=== PATIENT | male | born 1960 | race Caucasian/White ===

== ENCOUNTER 2017-07-26 09:09 | Day surgery (SDC) | payer BC, OTHER ==
[2017-07-25 11:38] VITALS: BMI 28.0
[2017-07-26] MEDS ORDERED: PROPOFOL 20 ML ONE ×3 (10:06)
[2017-07-26 10:45] VITALS: TEMP 97.7
[2017-07-26 11:25] VITALS: BP 133/73; PULSE 56
--- NOTE | 2017-07-29 13:10 | PATH ---
Surgical Pathology Report Patient Name: SARAH ORTHMAN [facility]. Rec. #: [id number] /Age/Gender: 1960 (Age: 57) / M Account: [id number] Location: [facility]-ENDOSCOPY Taken: 07/26/2017 Received: 07/26/2017 Reported: 07/29/2017 Physicians: Paolo Macias M.D. Specimen(s) Received A: BX GASTRIC BIOPSY B: BX DISTAL ESOPHAGUS C: BX CARDIA Clinical History Esophagitis, hiatal hernia Erosive gastritis cardia, erosive duodenitis, large hiatal hernia, nodular mucosa cardia Final Diagnosis A. STOMACH, BIOPSY: GASTRIC OXYNTIC MUCOSA WITH MILD CHRONIC GASTRITIS. IMMUNOSTAIN FOR H. PYLORI IS NEGATIVE FOR ORGANISMS. B. ESOPHAGUS, DISTAL, BIOPSY: SQUAMOUS EPITHELIUM WITH CHRONIC INFLAMMATION AND REFLUX CHANGES. NO COLUMNAR EPITHELIUM PRESENT (NO INTESTINAL METAPLASIA/HARMON'S ESOPHAGUS IDENTIFIED) IN THE EXAMINED MATERIAL. C. CARDIA, BIOPSY: SQUAMOCOLUMNAR JUNCTIONAL MUCOSA WITH CHRONIC INFLAMMATION AND FOCAL INTESTINAL METAPLASIA (SEE COMMENT). NEGATIVE FOR DYSPLASIA. Comment: The findings may represent Harmon's esophagus in proper endoscopic settings. Endoscopic correlations and followup are suggested. Electronically Signed Scott Last M.D. Gross Description A. Received in formalin, labeled "gastric biopsy" are 2 conrad, irregular portions of soft tissue averaging 0.5 cm in greatest dimension. The specimens are submitted in toto in one cassette. B. Received in formalin, labeled "biopsy distal esophagus" is a conrad, irregular portion of soft tissue measuring 0.4 cm in greatest dimension. The specimen is submitted in toto in one cassette. C. Received in formalin, labeled "biopsy cardia" is a conrad, irregular portion of soft tissue measuring 0.3 cm in greatest dimension. The specimen is submitted in toto in one cassette. 07/26/201707/26/2017
== END 2017-07-26 11:33 | disposition home or self-care (01) ==
LOC: JASU-ENDO 09:09
PROVIDERS: ATTEND Internal Medicine Gastroenterology
PROC: 0DB68ZX Excision of Stomach, Via Natural or Artificial Opening Endoscopic, Diagnostic (ICD-10-PCS; 2017-07-26)
PROC: 0DB58ZX Excision of Esophagus, Via Natural or Artificial Opening Endoscopic, Diagnostic (ICD-10-PCS; principal; 2017-07-26 10:00)
DX: K26.9 Duodenal ulcer, unspecified as acute or chronic, without hemorrhage or perforation (principal); K44.9 Diaphragmatic hernia without obstruction or gangrene; K22.10 Ulcer of esophagus without bleeding; K25.9 Gastric ulcer, unspecified as acute or chronic, without hemorrhage or perforation
CPT/HCPCS: 88305-TC; 88342-TC

== ENCOUNTER 2020-01-05 01:01 | Emergency (ER) | payer BC, OTHER ==
[2020-01-05 01:07] VITALS: BP 157/75; PULSE 70; TEMP 97.5; BMI 25.3
[2020-01-05] MEDS ORDERED: FAMOTIDINE 20 MG/50 ML IVPB 20 MG/50 ML MG IVPB ONE ×2 (02:04→02:25)
[2020-01-05] MEDS ORDERED: ACETAMINOPHEN 1000 MG/100 ML VIAL (NON FORMULARY) IVPB ONE (02:04)
[2020-01-05] MEDS ORDERED: MAG HYDROX/AL HYDROX/SIMETH 30 ML UNIT-DOSE CUP PO ONE (02:04)
[2020-01-05] MEDS ORDERED: SODIUM CHLORIDE 0.9% 500 ML INFUS.BAG IV ONE (02:04)
[2020-01-05] MEDS ORDERED: ACETAMINOPHEN INJECTION 100 ML IVPB ONE (02:24)
[2020-01-05] MEDS ORDERED: MAG HYDROX/AL HYDROX/SIMETH 30 ML UNIT-DOSE CUP ONE (02:24)
[2020-01-05 02:49] LABS: BASO % 0.6 % (0-2.0); EOS % 3.7 % (0-4.5); HEMATOCRIT 40.4 % (35.4-49); HEMOGLOBIN 13.8 GM/dL (11.7-16.9); LYMPH % 12.4 % (8-40); MCH 30.8 pg (25.7-33.7); MCHC 34.1 g/dl (32.0-35.9); MEAN CELL VOLUME 90.5 fl (80-96); MEAN PLT VOLUME 7.9 fl (7.5-11.1); MONO % 5.9 % (3.8-10.2); NEUT % 77.4 % (42.8-82.8); PLATELET COUNT 230 K/MM3 (134-434); RBC 4.46 M/mm3 (4.00-5.60); RDW 13.4 % (11.9-15.9); WHITE BLOOD COUNT 8.6 K/mm3 (4.0-10.0)
--- NOTE | 2020-01-05 03:06 | PDOC ---
History of Present Illness - General Chief Complaint: Pain Stated Complaint: ABDOMINAL PAIN Time Seen by Provider: 01/05/20 01:50 History Source: Patient Exam Limitations: No Limitations - History of Present Illness Initial Comments: 59M PMH GERD c/o nonradiating constant epigastric pain since 8pm today after he ate some fruit and nuts. Pain was worsening which prompted patient to come in. Denies n/v/d, f/c, cp/sob. Pt had the exact same presentation 7 days ago on 12/29 and was evaluated at [facility] with a negative cardiac workup; pain had resolved until today. Sees Dr. Boles for GI, has endoscopy scheduled in May. Endorses occasional etoh. PMH: 2 right inguinal hernia repairs in the past Past History - Past Medical History Allergies/Adverse Reactions: Allergies Allergy/AdvReac Type Severity Reaction Status Date / Time No Known Allergies Allergy Verified 01/05/20 01:07 Home Medications: Ambulatory Orders Multivitamin [One Daily] 1 each PO DAILY 07/24/17 Pantoprazole Sodium [Protonix -] 1 tab PO DAILY #30 tablet.ec 07/26/17 Anemia: No Asthma: No Cancer: No Cardiac Disorders: No CVA: No COPD: No CHF: No Dementia: No Diabetes: No GI Disorders: Yes (REFLUXESOPHAGITIS,GASTRITIS;H/H,STOMACH ULCER) Disorders: No HTN: No Hypercholesterolemia: Yes Liver Disease: No Seizures: No Thyroid Disease: No - Surgical History Abdominal Surgery: Yes (REPAIR RIGHT INGUINAL HERNIA) Appendectomy: No Cholecystectomy: No Orthopedic Surgery: Yes (RT ANKLE FRACTURE) - Psycho Social/Smoking Cessation Hx Smoking History: Never smoked Have you smoked in the past 12 months: No Hx Alcohol Use: Yes (OCCASSIONAL) Drug/Substance Use Hx: No Substance Use Type: Alcohol Hx Substance Use Treatment: No Review of Systems - Review of Systems Able to Perform ROS?: Yes Comments:: CONSTITUTIONAL: Denies F / C RESP: Denies SOB CARD: Denies chest pain, palpitations GI: endorses epigastric pain. Denies N / V / D, bloody stool, inability to tolerate PO : Denies dysuria SKIN: Denies rashes NEURO: Denies numbness, tingling, weakness MSK: Denies back pain *Physical Exam - Vital Signs Last Vital Signs Temp Pulse Resp BP Pulse Ox 97.5 F L 70 18 157/75 95 01/05/20 01:04 01/05/20 01:04 01/05/20 01:04 01/05/20 01:04 01/05/20 01:04 - Physical Exam 01/05/20 06:28 GEN: Well appearing, NAD, comfortable. AAOx3. HEENT: NC/AT. No facial asymmetry. Normal voice. Supple neck w/ FROM. CV: S1/S2, RRR, no m/r/g LUNG: CTAB, no wheezes, crackles, rales, rhonchi. GI: Soft, ndnt, +BS, no guarding, no rebound. No masses. MSK: No obvious deformities of all extremities. SKIN: Warm, dry, no rashes appreciated. PSYCH: Normal mood and affect. NEURO: Moving all extremities well. ambulates w/ normal gait. ED Treatment Course - LABORATORY CBC & Chemistry Diagram: 01/05/20 02:30 01/05/20 02:30 - ADDITIONAL ORDERS Additional order review: Laboratory Results 01/05/20 02:30 Lipase Cancelled 01/05/20 02:30 RBC 4.46 MCV 90.5 MCHC 34.1 RDW 13.4 MPV 7.9 Neutrophils % 77.4 D Lymphocytes % 12.4 D Monocytes % 5.9 Eosinophils % 3.7 Basophils % 0.6 - RADIOLOGY Radiology Studies Ordered: Category Date Time Status CHEST PA & LAT [RAD] Stat Radiology 01/05/20 02:04 Ordered - Medications Given in the ED: ED Medications Discontinued Medications Generic Name Dose Route Start Last Admin Trade Name Ender PRN Reason Stop Dose Admin Acetaminophen 1,000 mg 01/05/20 02:04 01/05/20 02:38 Ofirmev Injection - IVPB 01/05/20 02:05 1,000 mg ONCE ONE Administration Al Hydroxide/Mg Hydroxide 30 ml 01/05/20 02:04 01/05/20 02:38 Mylanta Oral Suspension - PO 01/05/20 02:05 30 ml ONCE ONE Administration Famotidine/Sodium Chloride 20 mg in 50 mls @ 100 mls/hr 01/05/20 02:04 02:38 Pepcid 20 Mg Premixed Ivpb - IVPB 01/05/20 02:33 100 mls/hr ONCE ONE Administration Sodium Chloride 1,000 ml 01/05/20 02:04 01/05/20 02:38 Normal Saline - IV 01/05/20 02:05 1,000 ml ONCE ONE Administration Medical Decision Making - Medical Decision Making 01/05/20 03:10 59M PMH GERD c/o nonradiating constant epigastric pain; worsening pain; had same presentation last week w/ negative work up and resolving pain eval'd at [facility]. Nontender exam. DDX - GERD, PUD, gastroenteritis, biliary pathology, pancreatitis; r/o ACS. - CBC, CMP, Cardiac, Lipase - CXR - EKG - GI cocktail; Fluids EKG 0244 HR 60 MO 158 QRS 142 QTc 428; NSR, RBBB; TWI III; unchanged when compared to prior EKG in system. 01/05/20 03:21 Pt's epigastric pain is decreased, "feels like a new man" f/u labs f/u cxr 01/05/20 04:07 labs reviewed reassuring DC home w/ GI f/u Discharge - Discharge Information Problems reviewed: Yes Clinical Impression/Diagnosis: Epigastric pain Condition: Stable Disposition: HOME - Admission No - Follow up/Referral Referrals: Neil Boles MD [Primary Care Provider] - - Patient Discharge Instructions Patient Printed Discharge Instructions: DI for Epigastric Pain Additional Instructions: Follow up with GI, Dr. Boles, in the next 5-7 days. You may benefit from an Endoscopy. Take pantoprazole daily. Follow up with your Primary Care Doctor in the next 7 days. Return to the Emergency Department if you experience: - worsening or changing pain - chest pain and/or shortness of breath - fevers, vomiting - anything that concerns you - Post Discharge Activity Work/Back to School Note: Back to Work
[2020-01-05 03:27] LABS: ALBUMIN 3.8 g/dl (3.4-5.0); BILIRUBIN,TOTAL 1.1 mg/dL (0.2-1); BLOOD UREA NITROGEN 17.7 mg/dL (7-18); CALCIUM 8.9 mg/dL (8.5-10.1); CREATININE 0.8 mg/dL (0.55-1.3); TOT PROT 7.2 g/dl (6.4-8.2)
--- NOTE | 2020-01-05 04:35 | PDOC ---
Attending Attestation - Resident Resident Name: YangOvidio - ED Attending Attestation I have performed the following: I have examined & evaluated the patient, The case was reviewed & discussed with the resident, I agree w/resident's findings & plan, Exceptions are as noted - HPI HPI: 01/05/20 04:33 59-year-old male history of reflux here today complaining of epigastric pain denies any shortness of breath or associated chest pain no nausea no vomiting no fevers no chills no change to his bowels. Patient states he does follow with Dr. sevilla has had an endoscopy done 1 year ago he is currently taking antacids did not take anything for his pain prior to arrival - Physicial Exam PE: 01/05/20 04:34 Awake alert no acute distress lungs are clear bilaterally heart is regular 30 murmurs rubs or gallops abdomen is soft there is no tenderness noted no CVA tenderness extremities are warm well perfused patient is awake alert and oriented x3 - Medical Decision Making 01/05/20 04:34 59-year-old male history of GERD here complaining of epigastric pain differential includes gastritis peptic ulcer disease pancreatitis cholelithiasis is less likely patient is currently nontender differential also considered plan EKG troponin chest x-ray CBC CMP lipase. Patient was given Pepcid and Maalox for symptoms he was much improved following labs were unremarkable KG was normal troponin was negative. Will discharge home follow- up with Dr. Sevilla return for any problems or concerns Heart Score/ECG Review #1 General ECG Interpretation: Sinus Rhythm, Normal Rate (60), Normal Intervals, No acute ischemic changes Compared to previous ECG there are: No significant change (comparison 10/13/15 RBBB no change)
--- NOTE | 2020-01-05 09:40 | EKG ---
Test Reason : Blood Pressure : / mmHG Vent. Rate : 060 BPM Atrial Rate : 060 BPM P-R Int : 158 ms QRS Dur : 142 ms QT Int : 428 ms P-R-T Axes : 053 045 023 degrees QTc Int : 428 ms NORMAL SINUS RHYTHM RIGHT BUNDLE BRANCH BLOCK ABNORMAL ECG WHEN COMPARED WITH ECG OF 10-NOV-2015 08:30, RIGHT BUNDLE BRANCH BLOCK HAS REPLACED INCOMPLETE RIGHT BUNDLE BRANCH BLOCK Confirmed by Riky Salmeron MD ([id number]) on 01/05/2020 9:39:40 AM Referred By: Confirmed By:Riky Salmeron MD
== END 2020-01-05 04:35 | disposition home or self-care (01) ==
LOC: JER 01:01
PROC: 3E033GC Introduction of Other Therapeutic Substance into Peripheral Vein, Percutaneous Approach (ICD-10-PCS; principal; 2020-01-05)
PROC: 3E033NZ Introduction of Analgesics, Hypnotics, Sedatives into Peripheral Vein, Percutaneous Approach (ICD-10-PCS; 2020-01-05)
DX: R10.13 Epigastric pain (principal); K21.9 Gastro-esophageal reflux disease without esophagitis; Z87.11 Personal history of peptic ulcer disease
CPT/HCPCS: 36415; 71046-TC-FY; 80053; 82550; 82553; 83690; 84484; 85025; 93005; 93010; 99285-25; J0131